=== PATIENT | female | born 1995 | race Caucasian/White ===

== ENCOUNTER 2019-12-13 14:28 | Emergency (ER) | payer OTHER, SELFPAY ==
[2019-12-13 14:33] VITALS: BP 165/91; PULSE 94; RESP 18; TEMP 37.1; O2SAT 99
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
[2019-12-13] MEDS: Acetaminophen 500 MG TAB 1000 MG PO (14:59)
[2019-12-13] MEDS: Lidocaine 5% Patch 1 PATCH TP (14:59)
[2019-12-13] MEDS: Ketorolac 30 MG/ML VIAL IM (15:00)
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
== END 2019-12-13 16:21 | disposition home or self-care (01) ==
PROVIDERS: Emergency Provider Student in an Organized Health Care Education/Training Program
DX: R07.81 Pleurodynia (principal); S20.219A Contusion of unspecified front wall of thorax, initial encounter; W50.0XXA Accidental hit or strike by another person, initial encounter
CPT/HCPCS: 81025; 96372; 99284; 71120; J1885